=== PATIENT | male | born 1985 | race Caucasian/White ===

== ENCOUNTER 2017-12-16 19:31 | Emergency (ER) | payer BC ==
[2017-12-16] MEDS ORDERED: METHYLPREDNISOLONE ACETATE 80 MG/ML VIAL IM ONE (20:04)
[2017-12-16] MEDS ORDERED: METHYLPREDNISOLONE ACETATE 80 MG/ML VIAL ONE (20:10)
[2017-12-16] MEDS ORDERED: DOXYCYCLINE HYCLATE 100 MG TABLET PO ONE (20:18)
--- NOTE | 2017-12-16 20:18 | ERNOTE ---
ENT HPI Date of Service: 12/16/17 Time Seen by Provider: 12/16/17 19:51 Source: patient, family Exam Limitations: no limitations - Immun/Allergies/Home Medications Immunizations: IMMUNIZATION HX Immunizations Up to Date No History of Influenza Vaccine Yes Hx Pneumococcal Vaccination No Allergies/Adverse Reactions: Allergies Allergy/AdvReac Type Severity Reaction Status Date / Time No Known Allergies Allergy Verified 09/03/15 21:32 Home Medications: HOME MEDICATIONS Imipramine HCl [Tofranil] 25 mg PO DAILY 09/03/15 [Last Taken Unknown] Doxycycline Hyclate [Vibratab] 100 mg PO BID #20 tab 12/16/17 [Last Taken Unknown] predniSONE [Prednisone] 1 tab PO TID #15 tab 12/16/17 [Last Taken Unknown] - History of Present Illness Narrative: c/o ear pain and sinus congestion for 2-3 days Severity: Present: moderate ENT Location: Present: ear (R), ear (L), nose Prearrival Treatment: Present: prescription meds Modifying Factors - Improves: Reports: nothing Modifying Factors - Worsens: Reports: nothing Associated Symptoms - ENT: Reports: nasal congestion/drainage, facial pain/ swelling Prior Treament: Reports: recently seen, treated by physician Review of Systems - Narrative Narrative: unremarkable - Review of Systems Constitutional: Present: See HPI, weakness, fatigue, malaise EYE: Present: no symptoms reported ENT: Present: See HPI, ear pain, nose pain, nose congestion, nasal drainage Respiratory: Present: no symptoms reported Cardiology: Present: no symptoms reported Gastrointestinal/Abdominal: Present: no symptoms reported Genitourinary: Present: no symptoms reported Musculoskeletal: Present: no symptoms reported Skin: Present: no symptoms reported Neurological: Present: no symptoms reported Endocrine: Present: no symptoms reported Hematologic/Lymphatic: Present: no symptoms reported Psych: Present: no symptoms reported - Narrative Narrative: unremarkable - Patient's Past Medical History Patient History - Medical: Anxiety Patient History - Cardiac/Respiratory: No pertinent hx Patient History - Cancer: No Hx of Cancer Patient History - Surgical Procedures: No surgical history Patient History - Other: None - Family History Family History:: no untoward family reactions to anesthesia, no familial bleeding tendencies, no family history of clotting disorders, no family history of premature - Social History Living Situations: home Abuse History: No History of abuse Psych History: Hx of Anxiety Smoking Status: Former smoker Have you smoked in the past 12 months: No Do you dip or chew tobacco: No Patient requests Smoking Cessation Consult: No Initiate information on Smoking Cessation: No Alcohol Use: none Drug Use: none - Immunizations Immunizations Up to Date: No Hx Pneumococcal Vaccination: No History of Influenza Vaccine: Yes Physical Exam - Physical Exam General Appearance: Present: mild distress, anxious Head Exam: Present: normal inspection, no evidence of injury Eye Exam: Normal inspection: bilateral, PERRL: bilateral, EOMI: bilateral Ears, Nose, Throat: Present: abnormal TM (R), abnormal TM (L), sinus pain/ drainage, pharyngeal erythema Neck: Present: normal inspection, nontender Respiratory: Present: no respiratory distress, normal breath sounds, no accessory muscle use, chest nontender, lungs clear Cardiovascular/Chest: Present: regular rate, rhythm, no murmur, normal peripheral pulses Gastrointestinal/Abdominal: Present: normal bowel sounds, nontender, nondistended, soft, no organomegaly Back Exam: Present: normal inspection, normal range of motion, no CVA tenderness , no vertebral tenderness Extremity Exam: Present: normal inspection, non-tender, normal range of motion, no edema Neurological Exam: Present: alert, oriented, normal mood/affect, no motor/ sensory deficits Skin Exam: Present: normal color, warm/dry Lymphatic Exam: Present: no adenopathy ED Progress - Date and Time Seen: Date and Time: 12/16/17 20:15 unchanged - Vital Signs Patient's Vital Signs:: I have reviewed the patient's vital signs. Vital Signs: Vital Signs 12/16/17 19:35 Temperature 36.4 C L Pulse Rate 84 Respiratory 16 Rate Blood Pressure 133/87 O2 Sat by Pulse 100 Oximetry - Progress/Reassessment Chief Complaint: Earache Progress:: Unchanged - Transfer of Care Expected Disposition: Discharge Plan - Plan Plan: to be discharged Departure Clinical Impression: Sinusitis, acute, Otitis media - Departure Disposition: Home self-care Condition: Fair Instructions: Sinusitis, Adult, [id number] Referrals: Mike Damon MD [Primary Care Provider] - Prescriptions: Doxycycline Hyclate [Vibratab] 100 mg PO BID #20 tab predniSONE [Prednisone] 1 tab PO TID #15 tab
[2017-12-16] MEDS ORDERED: DOXYCYCLINE HYCLATE 100 MG TABLET ONE (20:21)
[2017-12-16 20:26] VITALS: BP 129/88
== END 2017-12-16 20:26 | disposition home or self-care (01) ==
LOC: ER 19:31
DX: J32.9 Chronic sinusitis, unspecified; H66.93 Otitis media, unspecified, bilateral; Z87.891 Personal history of nicotine dependence

== ENCOUNTER 2019-08-26 02:54 | Observation (INO) ==
[2019-08-26] MEDS ORDERED: KETOROLAC TROMETHAMINE 30 MG/ML VIAL IM ONE (04:03)
[2019-08-26] MEDS ORDERED: DIAZEPAM 5 MG TABLET PO ONE (04:03)
--- NOTE | 2019-08-26 04:11 | ERNOTE ---
Upper Extremity HPI - Narrative Date of Service: 08/26/19 - General Extremities Pain Location: shoulder: left, arm: left Time Seen by Provider: 08/26/19 03:31 Source: patient Exam Limitations: no limitations - Immun/Allergies/Home Medications Immunizations: IMMUNIZATION HX Immunizations Up to Date Yes History of Influenza Vaccine Yes Hx Pneumococcal Vaccination No Allergies/Adverse Reactions: Allergies Allergy/AdvReac Type Severity Reaction Status Date / Time caffeine AdvReac Mild accelerated Verified 08/15/19 07:39 heart rate Home Medications: HOME MEDICATIONS Cyclobenzaprine HCl [Flexeril] 10 mg PO Q8H PRN #12 tab 06/06/19 [Last Taken Unknown] omeprazole 40 mg capsule,delayed release 40 mg PO DAILY PRN cap 08/01/19 [Last Taken Unknown] - History of Present Illness Narrative: Patient is a 34 years old male who presented complaining of left shoulder pain, and left arm pain that started earlier today while washing his hair in the shower with his arm up. 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 He was seen by his doctor who recommended to stop lifting weight which he did and he started physical therapy last week and had one session. Patient reports having a prescription for cyclobenzaprine, and ibuprofen as needed. He reports taking a dose of cyclobenzaprine 5 mg and 400 mg of ibuprofen at home earlier today which did not resolve his pain. Patient walked in with his left arm above his head. He reports shooting pain down his arm if he lowers his arm Date (Duration): 08/25/19 Occurred: this afternoon Location of Incident: home Severity: severe Method of Injury: Reports: unknown Loss of Consciousness: Reports: no loss of consciousness Modifying Factors - (Improves): Reports: pain medication Modifying Factors - (Worsens): Reports: other - lifting Other Injuries: Reports: none Prior Treament: Reports: recently seen Review of Systems - Review of Systems Constitutional: Absent: fever EYE: Absent: eye pain Respiratory: Absent: shortness of breath Cardiology: Absent: chest pain Gastrointestinal/Abdominal: Absent: nausea, vomiting Musculoskeletal: Present: muscle pain, neck pain, joint pain Skin: Absent: rash Neurological: Present: other - shooting pain down his left arm. Absent: weakness, numbness, tingling, tremors All Other Systems: All systems neg except as marked Medical History (Last Reviewed 08/26/19 @ 05:08 by Carline Love RN) Strep throat (Acute) Encounter to discuss test results (Acute) Gastroesophageal reflux disease (Chronic) Weight gain with edema (Acute) Leg weakness, bilateral (Acute) Abnormal thyroid blood test (Acute) Ear problem (Acute) Hypoglycemia (Acute) Autoimmune disorder (Chronic) Difficulty swallowing (Chronic) I expect he is having an allergic reaction to the aromatics in his 's candle burning. Pressure in head (Acute) It is global but without any neurological c/o or physical findings. Eustachian tube dysfunction (Acute) Bronchitis (Acute) Upper respiratory infection (Acute) Carcinoid syndrome (Chronic) Vasovagal syncope (Chronic) Onset Date: ~04/13/18 Obstructive sleep apnea (Chronic) Onset Date: ~10/24/13 Anxiety (Chronic) Onset Date: Unknown Pre-syncope (Acute) Pharyngitis, acute (Acute) Sinusitis, acute (Acute) Otitis media (Acute) Dizziness (Acute) Dehydration (Acute) Otitis media Onset Date: Unknown Pharyngitis Onset Date: Unknown Vasovagal reaction Onset Date: Unknown Surgical History: Surgical History (Last Reviewed 08/26/19 @ 05:08 by Carline Love RN) History of adenoidectomy Onset Date: Unknown Hx of tonsillectomy Onset Date: Unknown Family History: Family History (Last Reviewed 08/26/19 @ 05:08 by Carline Love RN) Father Hypertension Social History: (Last Reviewed 08/26/19 @ 05:08 by Carline Love RN) Social History: Marital status: current occupational status: employed Service: No Tobacco: Smoking Status: Never smoker Alcohol: alcohol intake: current Substance Use: substance use type: does not use Dietary Habits: caffeine: Yes Physical Exam - Physical Exam General Appearance: Present: alert, mild distress Head Exam: Present: normal inspection Eye Exam: Normal inspection: bilateral Ears, Nose, Throat: Present: normal ENT inspection Neck: Present: other - pain with left side rotation and lateral bending. Absent : lymphadenopathy (R), lymphadenopathy (L) Cardiovascular/Chest: Present: regular rate, rhythm Peripheral Pulses: N=norm/S=strong/W=weak/B=bound/A=absent: Radial (R): Normal, Radial (L): Normal Gastrointestinal/Abdominal: Present: normal bowel sounds Back Exam: Present: normal inspection, normal range of motion Extremity Exam: Present: normal range of motion, other - pain on palpation of left trapezius, and at the insertion of muscle of left shoulder Neurological Exam: Present: alert, oriented, normal mood/affect, no motor/sensory deficits, other - shooting pain down left side of neck/shouler/arm with extension, flexion and lt lateral bending of head DTR: N=norm/NB=norm/brisk/A=abs/DD=dull/dimin/HC=hyperactive: Bicep (R): Normal, Bicep (L): Normal Skin Exam: Present: normal color Lymphatic Exam: Present: no adenopathy Progress - Results and Orders Patient's Lab Results:: I have reviewed the patient's lab results. - Vital Signs Patient's Vital Signs:: I have reviewed the patient's vital signs. Vital Signs: Vital Signs 08/26/19 03:15 Temperature 36.8 C Pulse Rate 91 Respiratory Rate 16 Blood Pressure 154/105 H O2 Sat by Pulse Oximetry 99 - Progress/Reassessment Chief Complaint: Shoulder Injury/Pain Progress Note-Subjective: 08/26/19 07:11 - case discussed with Dr Valenzuela, who accepted observation status admission for pain control - Transfer of Care Expected Disposition: Admit Plan - Plan Plan: Patient with chronic left shoulder pain who presents with an exacerbation which started when washing his hair in the shower with his arm up. In the ED, he received Valium 5 mg po and ketorolac 30 mg IM which improved his symptoms only mildly. He received a dose of hydrocodone acetaminophen 5/325 mg per oral. Further evaluation with flexion, extension, lt lateral bending with compression of head caused shooting pain down his left side of neck, shoulder and arm. I ordered a CT cervical which showed a normal appearing cervical spine and mentioned limit evaluation of spinal canal and recommend further eval with MRI to assess for disc hernation. Patient was given a dose of solumedrol 125 mg. patient was reassessed again and there is no improvement of his pain. I put a sling on his left side which made it worse. I discussed case with Dr Valenzuela for observation admission for intractable pain. He accepted admission. Departure Clinical Impression: Acute strain of neck muscle, Shoulder pain, left, Radicular pain in left arm, Intractable pain - Departure Disposition: Still a patient Condition: Fair Referrals: Mike Damon MD [Primary Care Provider] - 08/28/19
[2019-08-26] MEDS ORDERED: HYDROcodone/ACETAMINOPHEN 1 EACH TABLET PO ONE (04:55)
[2019-08-26] MEDS ORDERED: METHYLPREDNISOLONE SOD SUCC/PF 125 MG/2 ML VIAL IM ONE (05:47)
[2019-08-26 07:27] LABS: Hematocrit 45.1 % (42.0-52.0); Hemoglobin 15.7 gm/dL (13.5-18.0); Mean Cell Volume 86.4 fl (78-100); Mean Corpuscular Hemoglobin 30.1 pg (27-31); Mean Corpuscular Hgb Conc 34.8 g/dl (32-36); Mean Platelet Volume 8.6 fl (8-11.3); Neutrophil % 56.6 % (42-75.0); Platelet Count 244 K/mm3 (150-450); Red Blood Count 5.22 M/mm3 (4.7-6.0); Red Cell Distribution Width 11.5 % (11.5-14.0); White Blood Count 5.3 K/mm3 (4.0-10.5)
[2019-08-26] MEDS ORDERED: MORPHINE SULFATE 4 MG/ML SYRG IV ONE (07:37)
[2019-08-26 07:40] LABS: Albumin * 3.6 gm/dl (3.4-5.0); Anion Gap 9.8 mmol/L (6.8-13.8); Bilirubin, Total 0.3 mg/dL (0.0-1.1); Ca. Corrected For Albumin 8.9 mg/dL (8.4-10.2); Calcium * 8.9 mg/dL (7.9-10.9); Carbon Dioxide 27.5 mmol/L (24-32.6); Potassium 4.3 mmol/L (3.4-4.6); Total Protein 6.5 gm/dL (6.2-8.2)
[2019-08-26 07:57] LABS: BUN/Creatinine Ratio 23.2 (9.0-21.6)
[2019-08-26] MEDS ORDERED: HYDROmorphone HCL 1 MG/ML DISP.SYRIN IV ONE (10:04)
[2019-08-26] MEDS: GABAPENTIN 300 MG CAPSULE PO SCH ×2 (12:48→19:49)
[2019-08-26] MEDS: KETOROLAC TROMETHAMINE 30 MG/ML VIAL IV SCH (18:07)
[2019-08-26] MEDS: traMADol HCL 50 MG TABLET PO PRN (18:10)
[2019-08-26] MEDS: CYCLOBENZAPRINE HCL 10 MG TABLET PO PRN (18:13)
--- NOTE | 2019-08-26 23:34 | HP ---
Chief Complaint - Chief Complaint Date of Service: 08/26/19 Time of Service: 01:00 Chief Complaint: neck and left arm pain History of Present Illness: Ashu is a 34 yo male that awake this morning with severe neck and shoulder pain radiating down his left arm. He denies trauma or change in activity. He gets numbness down left arm. It feels better if he holds above his head. No redness or bruising. He reports similar symptoms years ago that resolved with muscle relaxers after three days. He reports the pain was not this severe. He was given valium and toradol in the ER and pain was not controlled. He had a neck CT that showed no acute abnormality. Medical History (Last Reviewed 08/26/19 @ 10:42 by Irene Alvarado RN) Strep throat (Acute) Encounter to discuss test results (Acute) Gastroesophageal reflux disease (Chronic) Weight gain with edema (Acute) Leg weakness, bilateral (Acute) Abnormal thyroid blood test (Acute) Ear problem (Acute) Hypoglycemia (Acute) Autoimmune disorder (Chronic) Difficulty swallowing (Chronic) I expect he is having an allergic reaction to the aromatics in his 's candle burning. Pressure in head (Acute) It is global but without any neurological c/o or physical findings. Eustachian tube dysfunction (Acute) Bronchitis (Acute) Upper respiratory infection (Acute) Carcinoid syndrome (Chronic) Vasovagal syncope (Chronic) Onset Date: ~04/13/18 Obstructive sleep apnea (Chronic) Onset Date: ~10/24/13 Anxiety (Chronic) Onset Date: Unknown Pre-syncope (Acute) Pharyngitis, acute (Acute) Sinusitis, acute (Acute) Otitis media (Acute) Dizziness (Acute) Dehydration (Acute) Autoimmune autonomic ganglionopathy Small fiber neuropathy Otitis media Onset Date: Unknown Pharyngitis Onset Date: Unknown Vasovagal reaction Onset Date: Unknown Surgical History: Surgical History (Last Reviewed 08/26/19 @ 10:42 by Irene Alvarado RN) History of adenoidectomy Onset Date: Unknown Hx of tonsillectomy Onset Date: Unknown Family History: Family History (Last Reviewed 08/26/19 @ 10:42 by Irene Alvarado RN) Father Hypertension Social History: (Last Reviewed 08/26/19 @ 10:44 by Irene Lydolph, RN) Social History: Marital status: current occupational status: employed Highest education level completed: 12th grade, no diploma Service: No Tobacco: Smoking Status: Never smoker Alcohol: alcohol intake: former Substance Use: substance use type: does not use Dietary Habits: caffeine: Yes Chery/Quaker: chery/temple: Confucianist Chery special chery needs: No Review Of Systems (GEN) - Review of Systems Generalized/Overall Review: Absent: Weakness, Chills, Fever, Fatigue EENTM: Present: No Symptoms Reported Respiratory: Present: No Symptoms Reported Cardiac: Present: No Symptoms Reported Abdominal: Present: No Symptoms Reported Genitourinary: Present: No Symptoms Reported Musculoskeletal: Present: Muscle Pain, Neck Pain Neurological: Present: Numbness, Tingling, Other - burning and electrical pain down left arm Skin: Present: No Symptoms Reported Endocrine: Present: No Symptoms Reported Immunizations: IMMUNIZATION HX Immunizations Up to Date Yes History of Influenza Vaccine Yes Hx Pneumococcal Vaccination No Allergies/Adverse Reactions: Allergies Allergy/AdvReac Type Severity Reaction Status Date / Time caffeine AdvReac Mild accelerated Verified 08/26/19 10:44 heart rate Home Medications: HOME MEDICATIONS Cyclobenzaprine HCl [Flexeril] 10 mg PO Q8H PRN #12 tab 06/06/19 [Last Taken Unknown] omeprazole 40 mg capsule,delayed release 40 mg PO DAILY PRN cap 08/01/19 [Last Taken Unknown] Exam - Exam Vital Signs: Vital Signs - Last Taken Temp 36.4 C 08/26/19 18:58 Pulse 94 08/26/19 22:41 Resp 18 08/26/19 22:41 BP 140/71 H 08/26/19 22:41 Pulse Ox 96 08/26/19 22:41 Constitutional: Present: Alert, Oriented x3, Cooperative ENT Exam: Present: hearing grossly normal Eye Exam: bilateral eye: normal inspection Respiratory: Present: lungs clear, normal breath sounds, no respiratory distress Cardiovascular/Chest: Present: regular rate, rhythm, no edema Skin Exam: Present: normal color, warm/dry, no cyanosis Diagnostic Studies: Abnormal Lab Results 08/26/19 08/26/19 Range/Units 07:21 07:21 Eosinophils % 3.6 H (0.0-3.0) % BUN/Creatinine Ratio 23.2 H (9.0-21.6) Random Glucose 120 H (70-110) mg/dL ALT 78 H (19-67) U/L Laboratory Results WBC 5.3 K/mm3 (4.0-10.5) 08/26/19 07:21 RBC 5.22 M/mm3 (4.7-6.0) 08/26/19 07:21 Hgb 15.7 gm/dL (13.5-18.0) 08/26/19 07:21 Hct 45.1 % (42.0-52.0) 08/26/19 07:21 MCV 86.4 fl (78-100) 08/26/19 07:21 MCH 30.1 pg (27-31) 08/26/19 07: MCHC 34.8 g/dl (32-36) 08/26/19 07:21 RDW 11.5 % (11.5-14.0) 08/26/19 07:21 Plt Count 244 K/mm3 (150-450) 08/26/19 07:21 MPV 8.6 fl (8-11.3) 08/26/19 07:21 Immature Gran % (Auto) 0.20 % (0.001-0.429) 08/26/19 07:21 Immature Gran # (Auto) 0.01 K/mm3 (0.000-0.0310) 08/26/19 07:21 Neutrophils % 56.6 % (42-75.0) 08/26/19 07:21 Lymphocytes % 32.7 % (20-51) 08/26/19 07:21 Monocytes % 6.5 % (0.0-9) 08/26/19 07:21 Eosinophils % 3.6 % (0.0-3.0) H 08/26/19 07:21 Basophils % 0.4 % (0.0-1.0) 08/26/19 07:21 Nucleated RBC % 0.0 k/mm3 (0-1) 08/26/19 07:21 Neutrophils # 3.0 K/mm3 (1.3-6.0) 08/26/19 07:21 Lymphocytes # 1.72 k/mm3 (1.5-3.5) 08/26/19 07:21 Monocytes # 0.3 k/mm3 (0.0-1.0) 08/26/19 07:21 Eosinophils # 0.2 k/mm3 (0.0-0.7) 08/26/19 07:21 Absolute Basophils 0.0 k/mm3 (0.0-0.1) 08/26/19 07:21 Sodium 139 mmol/L (132-142) 08/26/19 07:21 Plasma Sodium 139 mmol/L (130-142) 08/26/19 07:21 Potassium 4.3 mmol/L (3.4-4.6) 08/26/19 07:21 Chloride 106 mmol/L (97-106) 08/26/19 07:21 Carbon Dioxide 27.5 mmol/L (24-32.6) 08/26/19 07:21 Anion Gap 9.8 mmol/L (6.8-13.8) 08/26/19 07:21 BUN 22 mg/dL (6-23) 08/26/19 07:21 Creatinine 0.95 mg/dL (0.4-1.4) 08/26/19 07:21 Est GFR (Non-Af Amer) 96 mL/min (60-130) 08/26/19 07:21 BUN/Creatinine Ratio 23.2 (9.0-21.6) H 08/26/19 07:21 Random Glucose 120 mg/dL (70-110) H 08/26/19 07:21 Calcium 8.9 mg/dL (7.9-10.9) 08/26/19 07:21 Calcium Adj for Albumin 8.9 mg/dL (8.4-10.2) 08/26/19 07:21 Total Bilirubin 0.3 mg/dL (0.0-1.1) 08/26/19 07:21 AST 29 U/L (0-48) 08/26/19 07:21 ALT 78 U/L (19-67) H 08/26/19 07:21 Alkaline Phosphatase 75 U/L (50-170) 08/26/19 07:21 Total Protein 6.5 gm/dL (6.2-8.2) 08/26/19 07:21 Albumin 3.6 gm/dl (3.4-5.0) 08/26/19 07:21 Assessment/Plan - Narrative Narrative: Ashu is a 34 yo male with intractable pain of left upper extremity that appears to be neuropathic. Suspect disc disease. Will try and control pain with oral medication using gabapentin, cyclobenzaprine. Will schedule toradol and use oral tramadol for breakthrough pain. May use IV dilaudid for severe breakthrough pain. May need to get an MRI as inpatient if pain is not controlled or outpatient if it becomes controlled. - Assessment/Plan (1) Cervical radiculopathy Problem: Acute (2) Intractable neuropathic pain of upper extremity Problem: Acute
[2019-08-27] MEDS: KETOROLAC TROMETHAMINE 30 MG/ML VIAL IV SCH ×4 (00:15→17:55)
[2019-08-27] MEDS: traMADol HCL 50 MG TABLET PO PRN ×3 (01:34→16:25)
[2019-08-27] MEDS: CYCLOBENZAPRINE HCL 10 MG TABLET PO PRN ×2 (02:40→12:06)
[2019-08-27] MEDS: GABAPENTIN 300 MG CAPSULE PO SCH ×2 (05:01→12:05)
[2019-08-27] MEDS ORDERED: PANTOPRAZOLE SODIUM 40 MG TABLET.EC PO PRN (08:54)
[2019-08-27] MEDS ORDERED: LIDOCAINE 5 APPL TUBE TP PRN (09:17)
[2019-08-27] MEDS ORDERED: HYDROmorphone HCL 2 MG TABLET PO ONE (13:49)
--- NOTE | 2019-08-27 14:18 | DS ---
Transfer Discharge Summary - Diagnosis(s)/Problems (1) Cervical radiculopathy Problem: Acute (2) Intractable neuropathic pain of upper extremity Problem: Acute - Course Description of Stay: Ashu is a 34 yo male that was admitted to observation due to intractable neck and left arm pain and numbness. He was trialed with Cyclobenzaprine, Toradol, Tramadol, Gabapentin, oral dilaudid and IV dilaudid. He was given IV solu-medrol. His pain was not controlled with any medications. He has best improvement of symptoms with his arm above his head and will often be found holding his arm in the air. MRI of neck was performed. 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 RECOMMEND SURGICAL CONSULTATION. Our closest neurosurgeon is Dr. Colorado who was contacted at [facility]. Discussed patient's case and his transfer was accepted. Consultation Done:: Neurosurgery - Dr. Colorado ([place], [place]) Procedures Performed: none - Medications Medications: Active Medications Cyclobenzaprine HCl (Flexeril) 10 mg PO TID PRN PRN Reason: Muscle Spasm Stop: 09/25/19 17:42 Last Admin: 08/27/19 12:06 Dose: 10 mg Documented by: Gabapentin (Neurontin) 300 mg PO Q8H ARCADIO Stop: 09/25/19 12:01 Last Admin: 08/27/19 12:05 Dose: 300 mg Documented by: Ketorolac Tromethamine (Toradol) 30 mg IV Q6H ARCADIO Stop: 08/31/19 17:46 Last Admin: 08/27/19 11:59 Dose: 30 mg Documented by: Lidocaine (Lmx 4) 1 appl TP Q6H PRN PRN Reason: pain Stop: 09/26/19 09:31 Last Admin: 08/27/19 12:02 Dose: 1 appl Documented by: Tramadol HCl (Ultram) 50 mg PO Q6H PRN PRN Reason: Pain Stop: 09/25/19 17:42 Last Admin: 08/27/19 08:52 Dose: 50 mg Documented by: Discontinued Medications Hydrocodone Bitart/Acetaminophen ([place] 5-325) 1 each PO ONCE ONE Stop: 08/26/19 04:56 Last Admin: 08/26/19 04:59 Dose: 1 each Documented by: Diazepam (Valium) 5 mg PO ONCE ONE Stop: 08/26/19 04:04 Last Admin: 08/26/19 04:08 Dose: 5 mg Documented by: Hydromorphone HCl (Dilaudid) 1 mg IV ONCE ONE Stop: 08/26/19 10:05 Last Admin: 08/26/19 10:28 Dose: 1 mg Documented by: Hydromorphone HCl (Dilaudid) 2 mg PO ONCE ONE Stop: 08/27/19 13:50 Last Admin: 08/27/19 14:09 Dose: 2 mg Documented by: Ketorolac Tromethamine (Toradol) 30 mg IM ONCE ONE Stop: 08/26/19 04:04 Last Admin: 08/26/19 04:08 Dose: 30 mg Documented by: Methylprednisolone Sodium Succinate (Solu-Medrol (Pf)) 125 mg IM ONCE ONE Stop: 08/26/19 05:48 Last Admin: 08/26/19 05:56 Dose: 125 mg Documented by: Morphine Sulfate (Morphine Sulfate) 4 mg IV ONCE ONE Stop: 08/26/19 07:38 Last Admin: 08/26/19 07:41 Dose: 4 mg Documented by: - Disposition Disposition: Short Term Hospital Inpatient Condition: Fair Discharge Date: 08/27/19 Discharge Time: 14:18
[2019-08-27 19:07] VITALS: BP 141/88
== END 2019-08-27 18:00 | disposition short-term general hospital (02) ==
LOC: ER 02:54 → MS 02:54
PROVIDERS: ADMIT Family Medicine; ATTEND Family Medicine
CPT/HCPCS: 36415; 72125; 72141; 80053; 85025; 94660; 96372; 96374; 96375; 99285; G0378